=== PATIENT | female | born 1950 | race Caucasian/White ===

== ENCOUNTER 2017-09-23 10:26 | Outpatient (CLI) | payer MEDICARE, BC ==
--- NOTE | 2017-09-23 12:57 | ULT ---
RIGHT UPPER QUADRANT ULTRASOUND: HISTORY: Right upper quadrant abdominal pain. Constipation. COMPARISON: None. TECHNIQUE: Utilizing a multihertz transducer, sonographic imaging of the right upper quadrant is performed in th e longitudinal and transverse plane. FINDINGS: The visualized pancreas has a normal echotexture. There is increased echogenicity of the liver which may be due to hepatic steatosis or hepatocellular disease. Subsequent evaluation for hepatic masses and intrahepatic biliary dilatation is limited. T he contour of the hepatic margin is maintained. Main portal vein is patent. Appropriate directional flow. Common bile duct diameter is 0.3 cm. Increased echogenicity of the right kidney. No hydronephrosis. The right kidney measures 5.5 x 6.4 x 8.6 cm. No sonographic evidence of cholelithiasis, gallbladder wall thickening, or pericholecystic fluid. So nographer reports a negative Rose's sign. IMPRESSION: 1. Increased echogenicity of the liver which may be due to hepatic steatosis or hepatocellular disea se. If there is concern for hepatic masses, consider liver mass protocol CT. 2. Increased echogenicity of the kidney which may be due to medical renal disease. Correlate clinic ally. 3. No sonographic evidence of cholelithiasis or cholecystitis. POS: [facility]
== END 2017-09-23 10:27 | disposition home or self-care (01) ==
LOC: ULT 10:26
PROVIDERS: ATTEND Internal Medicine Gastroenterology
DX: K59.09 Other constipation (principal); R10.11 Right upper quadrant pain; Z86.010 Personal history of colon polyps; K76.89 Other specified diseases of liver; N28.89 Other specified disorders of kidney and ureter
CPT/HCPCS: 76705

== ENCOUNTER 2017-09-23 15:16 | Outpatient (CLI) | payer MEDICARE, BC | END 2017-09-23 15:17 | disposition home or self-care (01) | LOC: BICMAMMO 15:16 | PROVIDERS: ATTEND Family Medicine | DX: Z12.31 Encounter for screening mammogram for malignant neoplasm of breast (principal) | CPT/HCPCS: 77063; 77067 ==

== ENCOUNTER 2017-10-07 10:29 | Outpatient (CLI) | payer MEDICARE, BC ==
--- NOTE | 2017-10-07 14:33 | RAD ---
SINGLE CONTRAST BARIUM ENEMA: Date: 10/07/17 HISTORY: Incomplete colonoscopy, congenital malformation. FLUOROSCOPY: Total time is 4.4 minutes with total dose of 2562.9 mGy*cm^2. FINDINGS: Single contrast barium enema was performed in the usual fashion. Contrast is seen extending into the appendix with a small amount of contrast seen in the terminal ileum. There is colonic diverticulosis involving the sigmoid colon. No persistent filling defect is seen. No annular constricted lesion is i dentified. There is a moderate amount of retained barium seen throughout the colon on the post evacua tion image. Small Kick Press Operator image demonstrates phleboliths overlying the pelvis with calcification overlying the right uppe r quadrant which may represent a hepatic granuloma. There is slight Grade I anterolisthesis of L4 on L5. Vascular calcifications seen in the abdominal ao rta. IMPRESSION: 1. Colonic diverticulosis. 2. No focal narrowing is seen involving the colon. 3. Slight Grade I anterolisthesis of L4 on L5. POS: [facility]
== END 2017-10-07 10:30 | disposition home or self-care (01) ==
LOC: RAD 10:29
PROVIDERS: ATTEND Internal Medicine Gastroenterology
DX: Q43.8 Other specified congenital malformations of intestine (principal); K57.30 Diverticulosis of large intestine without perforation or abscess without bleeding; M43.16 Spondylolisthesis, lumbar region; Z86.010 Personal history of colon polyps
CPT/HCPCS: 74280

== ENCOUNTER 2019-10-02 11:13 | Outpatient (CLI) | payer MEDICARE, BC ==
--- NOTE | 2019-10-02 12:34 | MMO ---
Bilateral MAMMO Bilat Screen [facility]. CLINICAL HISTORY: Patient is 69 years old and is seen for screening. The patient has no family history of breast cancer. The patient has no personal history of cancer. VIEWS: The views performed were: bilateral craniocaudal with tomosynthesis; bilateral mediolateral oblique with tomosynthesis; and left craniocaudal. FILMS COMPARED: The present examination has been compared to prior imaging studies performed at [facility] on 09/23/2017, and at [facility] on 10/04/2013, 05/02/2015 and 07/06/2016. This study has been interpreted with the assistance of computer-aided detection. MAMMOGRAM FINDINGS: There are scattered fibroglandular densities. There are no suspicious masses, suspicious calcifications, or new areas of architectural distortion. IMPRESSION: THERE IS NO MAMMOGRAPHIC EVIDENCE OF MALIGNANCY. A ROUTINE FOLLOW-UP MAMMOGRAM IN 1 YEAR IS RECOMMENDED. THE RESULTS OF THIS EXAM WERE SENT TO THE PATIENT. ACR BI-RADS Category 1 - Negative MAMMOGRAPHY NOTE: 1. A negative mammogram report should not delay a biopsy if a dominant of clinically suspicious mass is present. 2. Approximately 10% to 15% of breast cancers are not detected by mammography. 3. Adenosis and dense breasts may obscure an underlying neoplasm. Reported by: ALISSA BRENNAN MD Electonically Signed: [id number]
== END 2019-10-02 11:14 | disposition home or self-care (01) ==
LOC: BICMAMMO 11:13
PROVIDERS: ATTEND Family Medicine
DX: Z12.31 Encounter for screening mammogram for malignant neoplasm of breast (principal)
CPT/HCPCS: 77063; 77067

== ENCOUNTER 2020-10-07 12:39 | Outpatient (CLI) | payer MEDICARE, BC | END 2020-10-07 12:40 | disposition home or self-care (01) | LOC: BICMAMMO 12:39 | PROVIDERS: ATTEND Family Medicine | DX: Z12.31 Encounter for screening mammogram for malignant neoplasm of breast (principal) | CPT/HCPCS: 77063; 77067 ==

== ENCOUNTER 2020-12-09 09:28 | Inpatient (IN) | payer MEDICARE, BC ==
[~2020-12-09 09:28] MED LIST: Iopamidol-370 76% 500 ML 1 ML ONE
[2020-12-09 09:55] LABS: Hemoglobin 13.7 g/dL (12.0-16.0); Mean Corpuscular HGB CONC 32.6 g/dL (32.0-36.0); Mean Corpuscular Hemoglobin 29.8 pg (27.0-31.0); Mean Corpuscular Volume 91.4 fL (78.0-98.0); Mean Platelet Volume 6.5 fL (7.4-10.4); Platelet Count 542 thou/uL (130-400); RBC Distribution Width 12.1 % (11.5-14.5); Red Blood Cell (RBC) Count 4.61 mill/uL (4.20-5.40); White Blood Cell (WBC) Count 19.4 thou/uL (4.8-10.8)
[2020-12-09 10:11] LABS: ALT (SGPT) 10 U/L (8-55); AST (SGOT) 8 U/L (5-34); Alkaline Phosphatase 115 U/L (40-110); Anion Gap 13 mmol/L (10-20); BUN (Urea Nitrogen) 10 mg/dL (9.8-20.1); Bilirubin, Total 0.5 mg/dL (0.2-1.2); Calc. Creatinine Clearance 0 mL/min (70-130); Calcium 9.4 mg/dL (7.8-10.44); Carbon Dioxide 24 mmol/L (23-31); Chloride 101 mmol/L (98-107); Globulin 3.8 g/dL (2.4-3.5); Glucose 103 mg/dL (80-115); Lipase 4 U/L (8-78); Potassium 3.9 mmol/L (3.5-5.1); Protein, Total 7.8 g/dL (5.8-8.1); Sodium 134 mmol/L (136-145)
[2020-12-09 10:35] LABS: Band 2 % (5-11); Lymphocytes 12 % (21-51); MDiff Complete? YES; Monocytes 6 % (0-10); Neutrophil 80 % (42-75); Platelet Morphology Comment Appears Increased; RBC Morphology Normal
[2020-12-09 11:08] LABS: Bacteria/HPF None Seen HPF (None Seen); Bilirubin Negative (Negative); Blood, Urine Negative (Negative); Clarity Clear (Clear); Glucose, Urine (Dipstick) Normal (Negative); Ketone, Urine Greater than 150 mg/dL (Negative); Leukocyte Negative Leu/uL (Negative); Nitrite Negative (Negative); Protein, Urine (Dipstick) 50 mg/dL (Neg-Trace); Specific Gravity, Urine 1.025 (1.002-1.036); Squamous Epithelial 0-3 HPF (0-3); WBC/HPF 0-3 HPF (0-3)
[2020-12-09] MEDS ORDERED: Sodium Chloride 0.9% 100 ML ONE (11:41)
[2020-12-09] MEDS ORDERED: Piperacillin/Tazobactam 3.375 GM VIAL ONE (11:41)
[2020-12-09] MEDS ORDERED: Fentanyl 100 MCG/2 ML VIAL SLOW IVP PRN ×2 (13:18→13:25)
[2020-12-09] MEDS ORDERED: hydrALAZINE 20 MG/ML VIAL SLOW IVP PRN (13:26)
[2020-12-09 13:28] VITALS: BMI 27.4
[2020-12-09] MEDS ORDERED: Ondansetron ODT 4 MG TAB SL PRN (13:30)
[2020-12-09] MEDS ORDERED: Acetaminophen 325 MG TAB PO PRN (13:30)
[2020-12-09] MEDS ORDERED: Ondansetron PF 4 MG/2 ML Vial IVP PRN (13:30)
[2020-12-09 15:01] LABS: PTT 34.9 sec (22.9-36.1); Prothrombin Time 13.8 sec (12.0-14.7)
[2020-12-09] MEDS: D5 1/2 NS w/20 mEq KCL 1,000 ML IV SCH (15:01)
[2020-12-09] MEDS ORDERED: Midazolam HCl 2 mg/2 ml Vial ONE (15:09)
[2020-12-09] MEDS ORDERED: Sodium Bicarbonate 2.5 MEQ/5 ML VIAL ONE (15:10)
[2020-12-09] MEDS ORDERED: Fentanyl 100 MCG/2 ML VIAL ONE (15:10)
[2020-12-09 17:55] LABS: SARS-CoV-2 PCR by NAA Not Detected (NotDetected)
[2020-12-10] MEDS: Piperacillin/Tazobactam 3.375 GM in Sodium Chloride 0.9% 100 ML IVPB SCH ×5 (00:58→23:59)
[2020-12-10] MEDS: D5 1/2 NS w/20 mEq KCL 1,000 ML IV SCH ×4 (01:09→17:38)
[2020-12-10 06:40] LABS: Hemoglobin 11.6 g/dL (12.0-16.0); Mean Corpuscular HGB CONC 33.5 g/dL (32.0-36.0); Mean Corpuscular Hemoglobin 30.9 pg (27.0-31.0); Mean Corpuscular Volume 92.2 fL (78.0-98.0); Mean Platelet Volume 6.9 fL (7.4-10.4); Platelet Count 426 thou/uL (130-400); Red Blood Cell (RBC) Count 3.78 mill/uL (4.20-5.40); White Blood Cell (WBC) Count 17.8 thou/uL (4.8-10.8)
[2020-12-10 07:01] LABS: Anion Gap 11 mmol/L (10-20); BUN (Urea Nitrogen) 6 mg/dL (9.8-20.1); Calc. Creatinine Clearance 84 mL/min (70-130); Carbon Dioxide 25 mmol/L (23-31); Chloride 104 mmol/L (98-107); Glucose 120 mg/dL (80-115); Potassium 4.3 mmol/L (3.5-5.1); Sodium 136 mmol/L (136-145)
[2020-12-10] MEDS ORDERED: GoLYTELY 4,000 ml Bottle PO SCH (07:15)
[2020-12-10] MEDS: metroNIDAZOLE 500 MG TAB PO SCH ×3 (08:02→20:26)
[2020-12-10] MEDS: Pantoprazole 40 MG VIAL IVP SCH (08:02)
[2020-12-10 08:31] LABS: Band 7 % (5-11); Lymphocytes 12 % (21-51); MDiff Complete? YES; Monocytes 8 % (0-10); Neutrophil 73 % (42-75); Platelet Morphology Comment Appears Increased; Polychromasia SLIGHT = 2-3 cells (100X) (0-2/hpf)
[2020-12-10] MEDS: Neomycin 500 mg Tablet PO SCH ×4 (14:47→20:26)
[2020-12-11] MEDS: Neomycin 500 mg Tablet PO SCH ×8 (01:28→14:02)
[2020-12-11] MEDS: Piperacillin/Tazobactam 3.375 GM in Sodium Chloride 0.9% 100 ML IVPB SCH ×2 (05:12→14:02)
[2020-12-11] MEDS ORDERED: Fentanyl 100 MCG/2 ML VIAL ONE ×5 (06:40→12:12)
[2020-12-11] MEDS ORDERED: Lidocaine 2% Jelly 5 ML TUBE ONE (06:41)
[2020-12-11] MEDS ORDERED: Midazolam HCl 2 mg/2 ml Vial ONE (06:59)
[2020-12-11] MEDS ORDERED: Lidocaine 1% PF 5 ML VIAL ONE (07:36)
[2020-12-11] MEDS ORDERED: Dexamethasone 20 MG/5 ML VIAL ONE (07:36)
[2020-12-11] MEDS ORDERED: PROPOFOL 200 MG/20 ML VIAL ONE (07:36)
[2020-12-11] MEDS ORDERED: Glycopyrrolate 0.2 MG/ML 5 ML SYRINGE ONE (07:36)
[2020-12-11] MEDS ORDERED: PHENYLEPHRINE-NS 100 MCG/ML 10 ML SYRINGE ONE (07:36)
[2020-12-11] MEDS ORDERED: Bupivacaine HCl 0.5%/Epinephrine 1:200,000/PF 30 ml Vial ONE (07:36)
[2020-12-11] MEDS ORDERED: Rocuronium Bromide 10 MG/ML (10ML VIAL) ONE (07:36)
[2020-12-11] MEDS ORDERED: Ondansetron PF 4 MG/2 ML Vial ONE (07:36)
[2020-12-11] MEDS: D5 1/2 NS w/20 mEq KCL 1,000 ML IV SCH ×3 (07:39→20:31)
[2020-12-11] MEDS: metroNIDAZOLE 500 MG TAB PO SCH (08:12)
[2020-12-11] MEDS: Pantoprazole 40 MG VIAL IVP SCH (08:12)
[2020-12-11] MEDS ORDERED: Promethazine HCl 25 MG/ML VIAL SLOW IVP PRN (10:10)
[2020-12-11] MEDS ORDERED: Ondansetron HCl/PF 4 MG/2 ML Vial IVP PRN (10:10)
[2020-12-11] MEDS ORDERED: Promethazine HCl 25 MG/ML VIAL IM PRN ×3 (10:10→14:35)
[2020-12-11] MEDS ORDERED: Labetalol HCl 100 MG/20 ML VIAL ONE (12:40)
[2020-12-11] MEDS ORDERED: HYDROmorphone 0.5 MG/0.5 ML SYRINGE ONE (13:05)
[2020-12-11] MEDS ORDERED: hydrALAZINE 20 MG/ML VIAL SLOW IVP PRN (14:31)
[2020-12-11] MEDS ORDERED: Ondansetron PF 4 MG/2 ML Vial IVP PRN ×2 (14:31→14:35)
[2020-12-11] MEDS ORDERED: diphenhydrAMINE 50 MG/ML VIAL IM PRN (14:35)
[2020-12-11] MEDS ORDERED: Zolpidem Tartrate 5 MG TAB PO PRN (14:35)
[2020-12-11] MEDS ORDERED: Naloxone HCl 0.4 mg/ml Vial IV PRN (14:35)
[2020-12-11] MEDS ORDERED: diphenhydrAMINE 25 MG CAP PO PRN (14:35)
[2020-12-11] MEDS ORDERED: Ketorolac Tromethamine 30 MG/ML VIAL IVP PRN (14:35)
[2020-12-11] MEDS ORDERED: diphenhydrAMINE 50 MG/ML VIAL IVP PRN (14:35)
[2020-12-11] MEDS ORDERED: fentaNYL Citrate/PF 2,000 MCG in Sodium Chloride 0.9% 60 ML IV PRN (14:35)
[2020-12-11] MEDS ORDERED: Communication Order-Pharmacy FS SCH (14:45)
[2020-12-11] MEDS ORDERED: cefOXitin Sodium 1 GM in Sodium Chloride 0.9% 100 ML IVPB SCH (15:00)
[2020-12-11] MEDS: cefOXitin Sodium/Dextrose,Iso 1 GM in Premix Bag 1 BAG IVPB SCH ×2 (16:00→22:57)
[2020-12-11] MEDS: Enoxaparin Sodium 40 MG/0.4 ML SYRINGE SC SCH (20:31)
[2020-12-11] MEDS: Famotidine/PF 20 mg/2ml Vial SLOW IVP SCH (20:31)
[2020-12-11] MEDS: Famotidine 20 MG TAB PO SCH (21:29)
[2020-12-12 05:57] LABS: Anion Gap 10 mmol/L (10-20); BUN (Urea Nitrogen) 5 mg/dL (9.8-20.1); Calc. Creatinine Clearance 100 mL/min (70-130); Calcium 7.9 mg/dL (7.8-10.44); Carbon Dioxide 23 mmol/L (23-31); Chloride 99 mmol/L (98-107); Glucose 177 mg/dL (80-115); Sodium 128 mmol/L (136-145)
[2020-12-12 06:01] LABS: Band 9 % (5-11); Hemoglobin 11.4 g/dL (12.0-16.0); Lymphocytes 13 % (21-51); MDiff Complete? YES; Mean Corpuscular HGB CONC 32.7 g/dL (32.0-36.0); Mean Corpuscular Hemoglobin 30.4 pg (27.0-31.0); Mean Corpuscular Volume 93.1 fL (78.0-98.0); Mean Platelet Volume 6.8 fL (7.4-10.4); Monocytes 7 % (0-10); Neutrophil 70 % (42-75); Platelet Count 445 thou/uL (130-400); RBC Distribution Width 12.1 % (11.5-14.5); Reactive Lymphocytes 1 % (0-10); Red Blood Cell (RBC) Count 3.74 mill/uL (4.20-5.40); White Blood Cell (WBC) Count 21.4 thou/uL (4.8-10.8)
[2020-12-12] MEDS: Famotidine 20 MG TAB PO SCH ×2 (08:15→20:38)
[2020-12-12] MEDS: D5 1/2 NS w/20 mEq KCL 1,000 ML IV SCH (08:16)
[2020-12-12] MEDS: Famotidine/PF 20 mg/2ml Vial SLOW IVP SCH ×2 (08:16→21:27)
[2020-12-12] MEDS: Sodium Chloride 0.9% 1,000 ML IV SCH ×2 (11:58→20:38)
[2020-12-12] MEDS: Enoxaparin Sodium 40 MG/0.4 ML SYRINGE SC SCH (20:38)
[2020-12-13 05:48] LABS: #Lymphocytes 1.4 thou/uL (1.20-3.40); #Monocytes 1.2 thou/uL (0.11-0.59); #Neutrophils 12.2 thou/uL (1.40-6.50); %Basophils 0.1 % (0.0-1.0); %Eosinophils 0.1 % (0.0-10.0); %Lymphocytes 9.6 % (21.0-51.0); %Monocytes 8.3 % (0.0-10.0); %Neutrophils 81.9 % (42.0-75.0); Hemoglobin 10.9 g/dL (12.0-16.0); Mean Corpuscular HGB CONC 31.9 g/dL (32.0-36.0); Mean Corpuscular Hemoglobin 28.9 pg (27.0-31.0); Mean Corpuscular Volume 90.9 fL (78.0-98.0); Mean Platelet Volume 6.8 fL (7.4-10.4); Platelet Count 467 thou/uL (130-400); RBC Distribution Width 11.9 % (11.5-14.5); Red Blood Cell (RBC) Count 3.76 mill/uL (4.20-5.40); White Blood Cell (WBC) Count 14.9 thou/uL (4.8-10.8)
[2020-12-13 06:15] LABS: Anion Gap 11 mmol/L (10-20); BUN (Urea Nitrogen) 4 mg/dL (9.8-20.1); Calc. Creatinine Clearance 102 mL/min (70-130); Calcium 8.3 mg/dL (7.8-10.44); Carbon Dioxide 23 mmol/L (23-31); Chloride 100 mmol/L (98-107); Glucose 101 mg/dL (80-115); Potassium 3.6 mmol/L (3.5-5.1); Sodium 130 mmol/L (136-145)
[2020-12-13] MEDS: Famotidine 20 MG TAB PO SCH ×2 (08:12→21:31)
[2020-12-13] MEDS: Famotidine/PF 20 mg/2ml Vial SLOW IVP SCH ×2 (08:18→23:03)
[2020-12-13] MEDS ORDERED: HYDROcodone/Acetaminophen 5/325 mg Tablet PO PRN ×2 (12:04)
[2020-12-13] MEDS ORDERED: traMADol HCl 50 MG TAB PO PRN ×2 (12:05)
[2020-12-13] MEDS: Sodium Chloride 0.9% 1,000 ML IV SCH (12:43)
[2020-12-13] MEDS: Enoxaparin Sodium 40 MG/0.4 ML SYRINGE SC SCH (21:31)
[2020-12-14] MEDS: Sodium Chloride 0.9% 1,000 ML IV SCH ×2 (03:58→14:58)
[2020-12-14] MEDS: Famotidine 20 MG TAB PO SCH ×2 (08:09→20:41)
[2020-12-14] MEDS: Famotidine/PF 20 mg/2ml Vial SLOW IVP SCH (08:11)
[2020-12-14] MEDS ORDERED: Naproxen 500 MG TAB PO PRN (16:22)
[2020-12-14] MEDS: Enoxaparin Sodium 40 MG/0.4 ML SYRINGE SC SCH (20:41)
[2020-12-15] MEDS ORDERED: Levothyroxine Sodium 88 MCG TAB PO SCH (06:00)
[2020-12-15] MEDS: Famotidine 20 MG TAB PO SCH (08:15)
[2020-12-15] MEDS ORDERED: Bupropion 150 MG XL TAB PO SCH (09:00)
[2020-12-15] MEDS ORDERED: Fluticasone Propionate Nasal Spray 16 gm Bottle NASAL SCH (09:00)
[2020-12-15 11:35] VITALS: BP 132/63; TEMP 98.1
[2020-12-15] MEDS ORDERED: Acetaminophen 500 MG TAB PO PRN (12:25)
[2020-12-15] MEDS ORDERED: Ibuprofen 600 MG TAB PO PRN (12:25)
== END 2020-12-15 14:45 | disposition home or self-care (01) | DRG 329 ==
LOC: ERS 09:28 → T4-A 11:44 → SURG A 12-11 15:26
PROVIDERS: ADMIT Surgery; ATTEND Surgery
PROC: 0DBN0ZZ Excision of Sigmoid Colon, Open Approach (ICD-10-PCS; principal; 2020-12-12)
PROC: 0D1B0Z4 Bypass Ileum to Cutaneous, Open Approach (ICD-10-PCS; 2020-12-12)
PROC: 0DB80ZZ Excision of Small Intestine, Open Approach (ICD-10-PCS; 2020-12-12)
PROC: 0UB90ZZ Excision of Uterus, Open Approach (ICD-10-PCS; 2020-12-12)
DX: K57.20 Diverticulitis of large intestine with perforation and abscess without bleeding (principal); K65.9 Peritonitis, unspecified; E87.1 Hypo-osmolality and hyponatremia; K59.09 Other constipation; E03.9 Hypothyroidism, unspecified; Z20.822 Contact with and (suspected) exposure to COVID-19; Z96.652 Presence of left artificial knee joint; Z88.6 Allergy status to analgesic agent; Z98.890 Other specified postprocedural states
CPT/HCPCS: 36415; 49020; 74177; 77002; 80048; 80053; 81003; 81015; 83605; 83690; 85025; 85610; 85730; 87040; 88307; 96365; C9113; J0694; J1100; J1170; J1650; J2250; J2405; J2543; J2704; J3010; J3480; J3490; Q9967; S0028; U0003; U0005

== ENCOUNTER 2021-01-06 13:05 | Outpatient (CLI) | payer MEDICARE, BC, OTHER | END 2021-01-06 13:06 | disposition home or self-care (01) | LOC: RAD 13:05 | PROVIDERS: ATTEND Surgery | DX: Z48.815 Encounter for surgical aftercare following surgery on the digestive system (principal); Z93.2 Ileostomy status | CPT/HCPCS: 74270 ==

== ENCOUNTER 2021-01-21 13:47 | Outpatient (CLI) | payer MEDICARE, BC, OTHER ==
[2021-01-21 16:22] LABS: #Basophils 0.1 10x3/uL (0.0-0.2); #Eosinphils 0.2 10x3/uL (0.0-0.5); #Monocytes 0.5 10x3/uL (0.0-1.1); #Neutrophils 3.3 10x3/uL (1.5-8.4); %Basophils 1.1 % (0.0-2.0); %Eosinophils 3.5 % (0.0-6.0); %Lymphocytes 26.2 % (18.0-47.0); %Monocytes 8.3 % (0.0-10.0); %Neutrophils 60.7 % (40.0-75.0); Hemoglobin 12.2 g/dL (12.0-15.5); Mean Corpuscular HGB CONC 31.4 g/dL (32.0-36.0); Mean Corpuscular Hemoglobin 28.7 pg (27.0-33.0); Mean Corpuscular Volume 91.3 fl (81.6-98.3); Mean Platelet Volume 9.8 fl (7.4-10.4); Platelet Count 435 10x3/uL (150-450); RBC Distribution Width 14.9 % (11.5-14.5); Red Blood Cell (RBC) Count 4.25 10x6/uL (3.90-5.03); White Blood Cell (WBC) Count 5.4 10x3/uL (3.5-10.5)
[2021-01-21 16:31] LABS: Anion Gap 13 mmol/L (10-20); BUN (Urea Nitrogen) 9 mg/dL (9.8-20.1); Calc. Creatinine Clearance 0 mL/min (70-130); Calcium 9.5 mg/dL (7.8-10.44); Carbon Dioxide 25 mmol/L (23-31); Chloride 107 mmol/L (98-107); Glucose 96 mg/dL (80-115); Potassium 4.2 mmol/L (3.5-5.1); Sodium 141 mmol/L (136-145)
== END 2021-01-21 13:48 | disposition home or self-care (01) ==
LOC: LABBT 13:47
PROVIDERS: ATTEND Surgery
DX: Z01.812 Encounter for preprocedural laboratory examination (principal); Z93.2 Ileostomy status
CPT/HCPCS: 80048; 85025

== ENCOUNTER 2021-01-23 07:15 | Inpatient (IN) | payer MEDICARE, BC ==
[2021-01-22 11:12] VITALS: BMI 25.7
[2021-01-23] MEDS ORDERED: Fentanyl 100 MCG/2 ML VIAL ONE ×3 (08:53→11:07)
[2021-01-23] MEDS ORDERED: cefOXitin Sodium/Dextrose 2 GM/50 ML BAG ONE (08:54)
[2021-01-23] MEDS ORDERED: Ondansetron PF 4 MG/2 ML Vial ONE (09:02)
[2021-01-23] MEDS ORDERED: Rocuronium Bromide 10 MG/ML (10ML VIAL) ONE (09:02)
[2021-01-23] MEDS ORDERED: Lidocaine 1% PF 5 ML VIAL ONE (09:02)
[2021-01-23] MEDS ORDERED: Glycopyrrolate 0.2 MG/ML 5 ML SYRINGE ONE (09:02)
[2021-01-23] MEDS ORDERED: Dexamethasone 20 MG/5 ML VIAL ONE (09:02)
[2021-01-23] MEDS ORDERED: PROPOFOL 200 MG/20 ML VIAL ONE (09:02)
[2021-01-23] MEDS ORDERED: PHENYLEPHRINE-NS 100 MCG/ML 10 ML SYRINGE ONE (09:02)
[2021-01-23] MEDS ORDERED: Ketorolac Tromethamine 30 MG/ML VIAL ONE (09:02)
[2021-01-23] MEDS ORDERED: EPINEPHrine 1 MG/ML AMP ONE (09:16)
[2021-01-23] MEDS ORDERED: Bupivacaine 0.25% HCL 30 ML VIAL ONE (09:16)
[2021-01-23] MEDS ORDERED: Fentanyl 100 MCG/2 ML VIAL SLOW IVP PRN ×4 (10:17→13:23)
[2021-01-23] MEDS ORDERED: Ondansetron PF 4 MG/2 ML Vial IVP PRN ×2 (10:17→10:28)
[2021-01-23] MEDS ORDERED: hydrALAZINE 20 MG/ML VIAL SLOW IVP PRN (10:17)
[2021-01-23] MEDS ORDERED: Promethazine HCl 25 MG/ML VIAL IM PRN ×3 (10:17→10:28)
[2021-01-23] MEDS ORDERED: traMADol HCl 50 MG TAB PO PRN ×2 (10:17→13:23)
[2021-01-23] MEDS ORDERED: Zolpidem Tartrate 5 MG TAB PO PRN (10:28)
[2021-01-23] MEDS ORDERED: Naloxone HCl 0.4 mg/ml Vial IV PRN (10:28)
[2021-01-23] MEDS ORDERED: diphenhydrAMINE 25 MG CAP PO PRN (10:28)
[2021-01-23] MEDS ORDERED: fentaNYL Citrate/PF 2,000 MCG in Sodium Chloride 0.9% 60 ML IV PRN (10:28)
[2021-01-23] MEDS ORDERED: Ondansetron HCl/PF 4 MG/2 ML Vial IVP PRN (10:28)
[2021-01-23] MEDS ORDERED: diphenhydrAMINE 50 MG/ML VIAL IM PRN (10:28)
[2021-01-23] MEDS ORDERED: Promethazine HCl 25 MG/ML VIAL IVPB PRN (10:28)
[2021-01-23] MEDS ORDERED: diphenhydrAMINE 50 MG/ML VIAL IVP PRN (10:28)
[2021-01-23] MEDS ORDERED: Ketorolac Tromethamine 30 MG/ML VIAL IVP PRN (10:28)
[2021-01-23] MEDS ORDERED: Communication Order-Pharmacy FS SCH (10:30)
[2021-01-23] MEDS ORDERED: HYDROcodone/Acetaminophen 7.5/325 mg Tablet PO PRN (13:24)
[2021-01-23] MEDS: D5 1/2 NS w/20 mEq KCL 1,000 ML IV SCH ×2 (13:34→20:10)
[2021-01-23] MEDS ORDERED: cefOXitin Sodium 1 GM in Sodium Chloride 0.9% 100 ML IVPB SCH (17:00)
[2021-01-23] MEDS: cefOXitin Sodium/Dextrose,Iso 1 GM in Premix Bag 1 BAG IVPB SCH (18:09)
[2021-01-23] MEDS: Famotidine 20 MG TAB PO SCH (20:09)
[2021-01-23] MEDS: Famotidine/PF 20 mg/2ml Vial SLOW IVP SCH (20:09)
[2021-01-23] MEDS: Enoxaparin Sodium 40 MG/0.4 ML SYRINGE SC SCH (20:09)
[2021-01-23] MEDS: Ketorolac Tromethamine 30 MG/ML VIAL IVP PRN (22:30)
[2021-01-24] MEDS: cefOXitin Sodium/Dextrose,Iso 1 GM in Premix Bag 1 BAG IVPB SCH (00:21)
[2021-01-24 05:34] LABS: #Lymphocytes 1.9 thou/uL (1.20-3.40); #Neutrophils 8.2 thou/uL (1.40-6.50); %Basophils 0.3 % (0.0-1.0); %Eosinophils 0.2 % (0.0-10.0); %Lymphocytes 17.1 % (21.0-51.0); %Neutrophils 73.6 % (42.0-75.0); Mean Corpuscular HGB CONC 33.4 g/dL (32.0-36.0); Mean Corpuscular Hemoglobin 31.1 pg (27.0-31.0); Mean Corpuscular Volume 93.1 fL (78.0-98.0); Mean Platelet Volume 6.7 fL (7.4-10.4); Platelet Count 351 thou/uL (130-400); RBC Distribution Width 12.9 % (11.5-14.5); Red Blood Cell (RBC) Count 3.52 mill/uL (4.20-5.40); White Blood Cell (WBC) Count 11.1 thou/uL (4.8-10.8)
[2021-01-24] MEDS: Levothyroxine Sodium 88 MCG TAB PO SCH (05:35)
[2021-01-24 05:56] LABS: Anion Gap 10 mmol/L (10-20); BUN (Urea Nitrogen) 7 mg/dL (9.8-20.1); Calc. Creatinine Clearance 81 mL/min (70-130); Calcium 8.4 mg/dL (7.8-10.44); Carbon Dioxide 23 mmol/L (23-31); Chloride 107 mmol/L (98-107); Glucose 119 mg/dL (80-115); Potassium 3.6 mmol/L (3.5-5.1); Sodium 136 mmol/L (136-145)
[2021-01-24] MEDS: Ketorolac Tromethamine 30 MG/ML VIAL IVP PRN ×2 (06:54→21:05)
[2021-01-24] MEDS: Bupropion 150 MG XL TAB PO SCH (08:33)
[2021-01-24] MEDS: Famotidine 20 MG TAB PO SCH ×2 (08:33→21:04)
[2021-01-24] MEDS ORDERED: HYDROcodone/Acetaminophen 7.5/325 mg Tablet PO PRN (10:07)
[2021-01-24] MEDS ORDERED: Acetaminophen 325 MG TAB PO PRN (10:07)
[2021-01-24] MEDS: Famotidine/PF 20 mg/2ml Vial SLOW IVP SCH ×2 (10:20→21:16)
[2021-01-24] MEDS: D5 1/2 NS w/20 mEq KCL 1,000 ML IV SCH (12:44)
[2021-01-24] MEDS: Enoxaparin Sodium 40 MG/0.4 ML SYRINGE SC SCH (21:04)
[2021-01-25] MEDS: Levothyroxine Sodium 88 MCG TAB PO SCH (06:11)
[2021-01-25] MEDS: Ketorolac Tromethamine 30 MG/ML VIAL IVP PRN (06:11)
[2021-01-25 08:48] VITALS: TEMP 98
[2021-01-25] MEDS: Famotidine/PF 20 mg/2ml Vial SLOW IVP SCH (08:56)
[2021-01-25] MEDS: Famotidine 20 MG TAB PO SCH (09:12)
[2021-01-25] MEDS: Bupropion 150 MG XL TAB PO SCH (09:12)
[2021-01-25 09:54] VITALS: BP 111/69
== END 2021-01-25 10:03 | disposition home or self-care (01) | DRG 331 ==
LOC: SDC 07:15 → SURG A 10:18
PROVIDERS: ADMIT Surgery; ATTEND Surgery
PROC: 0DB80ZZ Excision of Small Intestine, Open Approach (ICD-10-PCS; principal; 2021-01-23)
DX: K94.13 Enterostomy malfunction (principal); Y84.8 Other medical procedures as the cause of abnormal reaction of the patient, or of later complication, without mention of misadventure at the time of the procedure; F32.9 Major depressive disorder, single episode, unspecified; M19.90 Unspecified osteoarthritis, unspecified site; Z96.659 Presence of unspecified artificial knee joint; Z79.51 Long term (current) use of inhaled steroids; Z79.899 Other long term (current) drug therapy; Z80.9 Family history of malignant neoplasm, unspecified; Z87.891 Personal history of nicotine dependence; Z88.8 Allergy status to other drugs, medicaments and biological substances
CPT/HCPCS: 36415; 80048; 85025; 88304; J0171; J0694; J1100; J1650; J1885; J2405; J2704; J3010; J3480; J3490; S0020; S0028

== ENCOUNTER 2021-10-30 10:25 | Outpatient (CLI) | payer MEDICARE, BC | END 2021-10-30 10:26 | disposition home or self-care (01) | LOC: BICMAMMO 10:25 | PROVIDERS: ATTEND Family Medicine | DX: Z12.31 Encounter for screening mammogram for malignant neoplasm of breast (principal) | CPT/HCPCS: 77063; 77067 ==